=== PATIENT | male | born 1965 | race Hispanic/Latino ===

== ENCOUNTER 2019-08-10 13:20 | Emergency (ER) | payer OTHER ==
[2019-08-10 13:26] VITALS: BP 149/83
--- NOTE | 2019-08-10 13:40 | Emergency Department Report ---
Blank Doc - Documentation Documentation: 53-year-old male that presents with left great toe fracture and nail bed avuls ion. This initial assessment/diagnostic orders/clinical plan/treatment(s) is/are subject to change based on patient's health status, clinical progression and re- assessment by fellow clinical providers in the ED. Further treatment and workup at subsequent clinical providers discretion. Patient/guardians urged not to elope from the ED as their condition may be serious if not clinically assessed a nd managed. Initial orders include: 1- Patient sent to [facility] for further evaluation and treatment
--- NOTE | 2019-08-10 14:29 | Emergency Department Report ---
ED Lower Extremity HPI - General Chief Complaint: Extremity Injury, Lower Stated Complaint: LFT BIG TOE/POSS BROKEN/PAIN Time Seen by Provider: 08/10/19 13:37 Source: patient Mode of arrival: Ambulatory Limitations: No Limitations - History of Present Illness Initial Comments: This is a 53-year-old male who presents to the emergency room with pain and bleeding of left great toe. Patient states he dropped a forklift currently accidentally on his left great toe while at work around 0615 this morning. He was sent to [facility] and diagnosed with comminuted fracture distal phalanx of left great toe. There is avulsion of nail and growth plane area. He was placed in a walker boot. Patient reports increased bleeding and requesting nailbed removed. MD Complaint: foot injury (left great toe) -: This morning Time: 06:15 Injury: Toes: Left Type of Injury: blunt Place: work Severity: moderate Severity scale (0 -10): 7 Improves With: immobilization Worsens With: weight bearing, movement Context: direct blow Associated Symptoms: unable to bear weight - Related Data Allergies Allergy/AdvReac Type Severity Reaction Status Date / Time No Known Allergies Allergy Verified 08/10/19 13:22 ED Review of Systems ROS: Stated complaint: LFT BIG TOE/POSS BROKEN/PAIN Other details as noted in HPI Constitutional: denies: chills, fever Respiratory: denies: cough, shortness of breath, wheezing Cardiovascular: denies: chest pain, palpitations Gastrointestinal: denies: abdominal pain, nausea, diarrhea Musculoskeletal: arthralgia (left great toe pain and laceration). denies: back pain, joint swelling Skin: denies: rash, lesions Neurological: denies: headache, weakness, paresthesias Psychiatric: denies: anxiety, depression ED Past Medical Hx - Past Medical History Previous Medical History?: No - Surgical History Past Surgical History?: No - Social History Smoking Status: Never Smoker Substance Use Type: None ED Physical Exam - General Limitations: No Limitations General appearance: alert, in no apparent distress - Respiratory Respiratory exam: Present: normal lung sounds bilaterally. Absent: respiratory distress - Cardiovascular Cardiovascular Exam: Present: regular rate, normal rhythm. Absent: systolic murmur, diastolic murmur, rubs, gallop - GI/Abdominal GI/Abdominal exam: Present: soft, normal bowel sounds - Expanded Lower Extremity Exam Left Hip exam: Present: normal inspection, full ROM Upper Leg exam: Present: normal inspection, full ROM Knee exam: Present: normal inspection, full ROM Lower Leg exam: Present: normal inspection, full ROM Ankle exam: Present: normal inspection, full ROM Foot/Toe exam: Present: laceration (transverse laceration involving nail bed and plate with distal phalanx fracture, decreased ROM) Neuro vascular tendon exam: Present: no vascular compromise - Neurological Exam Neurological exam: Present: alert, oriented X3 - Psychiatric Psychiatric exam: Present: normal affect, normal mood - Skin Skin exam: Present: warm, dry, intact, normal color. Absent: rash ED Course Vital Signs 08/10/19 13:25 Temperature 98.0 F Pulse Rate 82 Respiratory 19 Rate Blood Pressure 149/83 O2 Sat by Pulse 97 Oximetry ED Lower Extremity MDM - Medical Decision Making Patient was examined by me. Patient is nontoxic appearing and stable. Vitals are normal. Patient sent to the emergency room from [facility] for further evaluation. Review x-ray of the left great toe. There is a comminuted fracture distal phalanx of left great toe. There is avulsion of nail and growth plane area. He was placed in a walker boot. Bleeding is controlled. Instructed to continue pressure dressing and wear a walker boot. Referral to orthopedic or podiatry. Return to the ER with worsening symptoms. Patient discharged home in stable condition. Critical care attestation.: If time is entered above; I have spent that time in minutes in the direct care of this critically ill patient, excluding procedure time. ED Disposition Clinical Impression: Avulsion of toenail of left foot Fractured great toe Qualifiers: Encounter type: initial encounter Fracture type: open Phalanx: distal Fracture alignment: nondisplaced Laterality: left Qualified Code(s): S92.425B - Nondisplaced fracture of distal phalanx of left great toe, initial encounter for open fracture Disposition: TO HOME OR SELFCARE Is pt being admited?: No Condition: Stable Instructions: Toe Fracture (ED) Additional Instructions: Follow-up with a health professor or orthopedic surgeon. Referrals: EDUARDO OSBORNE MD [Staff Physician] - 3-5 Days [facility] [Provider Group] - 3-5 Days [facility], [Provider Group] - 3-5 Days Time of Disposition: 14:37
== END 2019-08-10 14:48 | disposition home or self-care (01) ==
LOC: ED 13:20
DX: S92.422A Displaced fracture of distal phalanx of left great toe, initial encounter for closed fracture (principal); S91.202A Unspecified open wound of left great toe with damage to nail, initial encounter; W22.8XXA Striking against or struck by other objects, initial encounter; Y93.89 Activity, other specified; Y92.69 Other specified industrial and construction area as the place of occurrence of the external cause; Y99.8 Other external cause status
CPT/HCPCS: 99281